=== PATIENT | male | born 1950 | race Caucasian/White ===

== ENCOUNTER 2025-05-31 07:58 | Outpatient (AMB) | payer MEDICARE, OTHER, SELFPAY ==
--- OUTSIDE RECORDS SUMMARY | 2020-11-21 10:54 | XMS_ITS | Encounter Summary ---
Author Organization [facility] Address [address] [place] [phone] Phone Care Team Providers Care Chief Of Staff Name Role Phone Manish Arellano MD Primary Care Provider + Encounter Details Date Type Department Care Team (Late st Contact Info) Description 11/21/2020 9:54 AM EST Hospital Encounter [facility] [address] [place] [address] Buffy Hightower FNP [address] [place] [address] [email or web address] Social History Tobacco Use Types Packs/Day Years Used Date Smoking Tobacco: Former Smokeless Tobacco: Never Education Answer Date Recorded Are you interested in more education? Not on ramez e 01/29/2023 Are you concerned about learning? Not on file 01/29/2023 No 01/29/2023 No 01/29/2023 Digital Access Answer Date Recorded No 03/03/2023 No 03/03/2023 Reliable internet access at home? Not on file 03/03/2023 Device with a working camera? Not on file Sex and Gender Information Value Date Recorded Sex Assigned at Male 10/25/2019 10:32 AM EST Legal Sex Male 10:18 AM EST Gender Identity Male 10/25/2019 10:32 AM EST Sexual Orientation Straight 10/25/2019 10 :32 AM EST documented as of this encounter Plan of Treatment Not on file documented as of this encounter Procedures Procedure Name Priority Date/Time Associated Diagnosis Comments XR RIBS 3 OR MORE VIEWS WITH PA CHEST (RIGHT) Urgent/patient waiting 11/21/2020 10:03 AM EST Fall, initial encounter documented in this encounter Results * XR RIBS 3 OR MORE VIEWS WITH PA CHEST (RIGHT) (11/21/2020 10:03 AM EST) Anatomical Region Laterality Modality Chest Computed Radiogr aphy 11/21/2020 10:2 9 AM EST Impressions 11/21/2020 10:38 AM EST Mildly displaced fractures of the right lateral 8th, 9th and 10th ribs. No pneumothorax. Critical results were communicated and documented using the Alert Notification of Critical Radiology Results (ANCR) system. ATTESTATION: Gina Jacobo as teaching physician, have reviewed the images for this case and if necessary edited the report originally created by Nini Simmons. Narrative 11/21/2020 10:38 AM EST TECHNIQUE: XR RIBS 3 OR MORE VIEWS WITH PA CHEST (RIGHT) COMPARISON: None. FINDINGS: Mildly displaced fractures of the right lateral 8th, 9th, and 10th ribs. The lung is clear with mild bibasilar atelectasis. Degenerative changes of the visualized spine. Procedure Note Gina Dempsey MD - 11/21/2020 TECHNIQUE: XR RIBS 3 OR MORE VIEWS WITH PA CHEST (RIGHT) COMPARISON: None. FINDINGS: Mildly displaced fractures of the right lateral 8th, 9th, [id number] ribs. The lung is clear with mild bibasilar atelectasis. Degenerativechanges of the visualized spine. IMPRESSION: Mildly displaced fractures of the right lateral 8th, 9th and 10th ribs. Nopneumothorax. Critical results were communicated and documented using the AlertNotification of Critical Radiology Results (ANCR) system. ATTESTATION: Gina Jacobo as teaching physician, have reviewed theimages for this case and if necessary edited the report originally createdby Nini Simmons. Buffy Hightower STORE HOST IMG XR CHEST Final Resul t documented in this encounter Visit Diagnoses Not on filedocumented in this encounter Additional Health Concerns Infection Onset Date Last Indicated Resolved Time CoV-Exposed Comment:Recent close contact documented in the COVID-19 PCR/PRO order 09/17/2022 09/23/2022 09/28/2022 1:[address] CoV-Risk 09/23/2022 09/23/2022 10/04/2022 1:23 AM EST documented as of this encounter Care Teams Chief Of Staff Relationship Specialty Start Date End Date Manish Arellano MD [address] [place] [phone] PCP - General Internal Medicine 11/21/20 documented as of this encounter Additional Source Comments The information contained in this document represents components of the legal health record. It is not the complete legal health record.[facility]
--- OUTSIDE RECORDS SUMMARY | 2024-10-12 13:19 | XMS_ITS | Encounter Summary ---
Author Organization [facility] Address [address] [place] [phone] Phone Care Team Providers Care Tapping Machine Operator Name Role Phone Manish Arellano MD Primary Care Provider + Encounter Details Date Type Department Care Team (Late st Contact Info) Description 10/12/2024 12:19 PM EST Hospital Encounter [facility] [address] [place] [phone] Patricia Cunningham CNP [address] [place] [address] [email or web address] Social History Tobacco Use Types Packs/Day Years [...] Name Priority Date/Time Associated Diagnosis Comments XR SHOULDER 2 VIEWS (RIGHT) Urgent/patient waiting 10/12/2024 12:28 PM EST Fall due to slipping on ice or snow, initial encounter Pain in right upper arm documented in this encounter Results * XR SHOULDER 2 VIEWS (RIGHT) (10/12/2024 12:28 PM EST) Anatomical Region Laterality Modality Shoulder Right Computed Radiogr aphy 10/12/2024 1:21 PM EST Impressions 10/12/2024 1:25 PM EST No fracture or dislocation. Narrative 10/12/2024 1:25 PM EST XR SHOULDER 2 OR MORE VIEWS (RIGHT), XR HUMERUS (RIGHT) Referring clinician's provided indication for this examination in [facility]: S/P Fall; limited arm raise, X 2 weeks COMPARISON: None FINDINGS: No fracture. Normal glenohumeral alignment and joint space. There is joint space narrowing of the acromioclavicular joint. Procedure Note Cynthia Ybarra MD - 10/12/2024 XR SHOULDER 2 OR MORE VIEWS (RIGHT), XR HUMERUS (RIGHT) Referring clinician's provided indication for this examination in [facility]:S/P Fall; limited arm raise, X 2 weeks COMPARISON: None FINDINGS: No fracture. Normal glenohumeral alignment and joint space. There is jointspace narrowing of the acromioclavicular joint. IMPRESSION: No fracture or dislocation. us Patricia Cunningham CUSHION MAT MAKER IMG XR UPPER EXTREMITY Renetta l Result documented in this encounter Visit Diagnoses Not on filedocumented in this encounter Care Teams Tapping Machine Operator Relationship Specialty Start Date End Date Manish Arellano MD [address] [place] [phone] PCP - General Internal Medicine 11/21/20 documented as of this encounter Additional Source Comments The information contained in this document represents components of the legal health record. It is not the complete legal health record.[facility]
--- OUTSIDE RECORDS SUMMARY | 2024-10-12 13:20 | XMS_ITS | Encounter Summary ---
Author Organization [facility] Address [address] [place] [address] Phone Care Team Providers Care Talent Acquisition Consultant Name Role Phone Manish Arellano MD Primary Care Provider + Encounter Details Date Type Department Care Team (Late st Contact Info) Description 10/12/2024 12:20 PM EST Hospital Encounter [facility] [address] [place] [phone] Patricia Cunningham CNP [address] [place] [address] [email or web address] Social History Tobacco Use Types Packs/Day Years [...] Name Priority Date/Time Associated Diagnosis Comments XR HUMERUS (RIGHT) Urgent/patient waiting 10/12/2024 12:27 PM EST Fall due to slipping on ice or snow, initial encounter Pain in right upper arm documented in this encounter Results * XR Humerus (Right) (10/12/2024 12:27 PM EST) Anatomical Region Laterality Modality Arm Right Computed Radiogr aphy 10/12/2024 1:21 PM EST Impressions 10/12/2024 1:25 PM EST No fracture or dislocation. Narrative 10/12/2024 1:25 PM EST XR SHOULDER 2 OR MORE VIEWS (RIGHT), XR HUMERUS (RIGHT) Referring clinician's provided indication for this examination in [facility]: S/P Fall; limited arm raise, X 2 weeks COMPARISON: None FINDINGS: No fracture. Normal glenohumeral alignment and joint space. There is joint space narrowing of the acromioclavicular joint. Procedure Note Cynthia Ybarra MD - 10/12/2024 XR SHOULDER 2 OR MORE VIEWS (RIGHT), XR HUMERUS (RIGHT) Referring clinician's provided indication for this examination in [facility]:S/P Fall; limited arm raise, X 2 weeks COMPARISON: None FINDINGS: No fracture. Normal glenohumeral alignment and joint space. There is jointspace narrowing of the acromioclavicular joint. IMPRESSION: No fracture or dislocation. us Patricia Cunningham HOME CARE RN IMG XR UPPER EXTREMITY Renetta l Result documented in this encounter Visit Diagnoses Not on filedocumented in this encounter Care Teams Talent Acquisition Consultant Relationship Specialty Start Date End Date Manish Arellano MD [address] [place] [phone] PCP - General Internal Medicine 11/21/20 documented as of this encounter Additional Source Comments The information contained in this document represents components of the legal health record. It is not the complete legal health record.[facility]
--- OUTSIDE RECORDS SUMMARY | 2025-05-31 08:01 | XMS_ITS | Clinical Summary ---
Author Organization [facility] [address] [place] [address] Address [address] [place] [address] Phone Care Team Providers Care Granulator Operator Name Role Phone Manish Arellano MD Primary Care Provider [phone] Allergies No known active allergies Medications aspirin 81 mg EC tablet Take 1 tablet (81 mg total) by mouth 1 (one) time each day. Active omega-3 acid ethyl esters (LOVAZA) 1 gram capsule 1 cap daily 11/01/2007 Active MEN'S MULTI-VITAMIN ORAL 1 tab daily 11/01/2007 Active sertraline (ZOLOFT) 50 mg tablet Take 1 tablet (50 mg total) by mouth 1 (one) time each day. 08/03/2023 Active finasteride (PROSCAR) 5 mg tablet Take 1 tablet (5 mg total) by mouth 1 (one) time each day. Do not crush, chew, or split. 90 each 1 02/01/2025 Active traZODone (DESYREL) 100 mg tablet Take 2 tablets (200 mg total) by mouth at bedtime. 180 tablet 1 02/01/2025 Active Active Problems Problem Noted Date Diagnosed Date Insomnia 08/03/2024 MCI (mild cognitive impairment) 08/03/2023 Oropharyngeal dysphagia 01/07/2021 Overview (09/16/2024): 01/07/2021: see EGD, Ba swallow, AUTOMATION APPLICATION ENGINEER evaluation. 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 Impaired fasting glucose 09/04/2017 Overview (09/16/2024): Glucose 107, 06/21/2017. Hyperlipidemia 08/31/2016 Overview (09/16/2024): Total cholesterol 206, LDL cholesterol 101, 08/29/2015. 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 Negative colonoscopy 11/01/2007 and 12/07/2012, no colon cancer screening needed for 10 years. Diverticulitis of colon without hemorrhage 11/01 Overview (09/16/2024): Incidental finding at colonoscopy. 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 Immunizations Name Administration Dates Next Due Influenza trivalent, 0.5mL ( Fluad) 65yo and older 07/10/2022,07/11/2018,06/28/2017 Influenza trivalent, 0.5mL, preservative free (Fluarix; FluLaval; Fluzone) ages 6mo and older (Afluria) 3 years and older 06/22/2020,09/01/2016,08/29/2015,07/16,08/25/2013,08/04/2012,07/14/2011 ,09/19/2008,07/13/2007 Pfizer Covid-19 Bivalent, Or iginal + Ba.1 (Non-US Trademark COMIRNATY Bivalent) 07/10/2022 Natural Convergence SARS-CoV-2 COVID-19, mRNA, LNP-S, preservative free 01/13/2022 Pneumococcal conjugate 13 va lent (Prevnar 13, PCV13) 2mo and older 09/01/2016 Pneumococcal polysaccharide 23 valent (Pneumovax 23) 2yo and older 08/28/2014 Td Tetanus diptheria (Tdvax) 7yo and older 07/09/2006 Td Tetanus diptheria, preser vative free (Tenivac) 7yo and older 02/01/2025 Tdap Tetanus diptheria acell ular pertussis (Boostrix; Adacel) 7yo and older 09/29/2013 Zoster Live 08/25/2013 Zoster recombinant (Shingrix ) 19yo and older 06/22/2020 Surgical History Surgery Date Site/Laterality Comments HERNIA REPAIR 1992 PROCEDURE: HISTORICAL HERNIA REPAIR/ING HERNIA REPAIR 1998 PROCEDURE: HISTORICAL HERNIA REPAIR/ING; COMMENT: incarcerated TONSILLECTOMY 1953 PROCEDURE: HISTORICAL TONSILLECTOMY MULTIPLE TOOTH EXTRACTIONS PROCEDURE: HISTORICAL DENTAL EXTRACTION COLONOSCOPY 12/07/2012 PROCEDURE: HISTORICAL COLONOSCOPY; COMMENT: diverticulosis; no polyps COLONOSCOPY 11/01/2007 PROCEDURE: HISTORICAL COLONOSCOPY; COMMENT: Negative. COLONOSCOPY 09/30/2004 PROCEDURE: HISTORICAL COLONOSCOPY; COMMENT: Dim tub adenoma at rectosigmoid junction. UPPER GASTROINTESTINAL ENDOSCOPY 12/25/2020 PROCEDURE: VT UPPER GI ENDOSCOPY PERFORMED; COMMENT: Small esophageal ulcer; minimal erosive gastropathy; pathology: Minimal inflammation otherwise negative. Medical History Medical History Date Comments Unspecified hearing loss 07/09/2006 DX:Unsp ecified hearing loss Unspecified hearing loss 07/09/2006 DX:Unsp ecified hearing loss Benign neoplasm of rectum an d anal canal 11/01/2007 DX:Benign neoplasm of rectum and anal canal; COMMENT: CN 09/30/2004. Negative colonoscopy 11/01/2007, no colon cancer screening needed for 5 years. Diverticulosis of colon (wit hout mention of hemorrhage) 11/01/2007 DX:Diverticulosis of colon ( without mention of hemorrhage); COMMENT: Incidental finding at colonoscopy. Oropharyngeal dysphagia 01/07/2021 DX:Oroph aryngeal dysphagia; COMMENT: 01/07/2021: see EGD, Ba swallow, AUTOMATION APPLICATION ENGINEER evaluation. Family History Medical History Relation Name Comments Brain cancer Aunt Lung cancer Father age 65 Other: Old age Mother age 88 Colon cancer Neg Hx Esophageal cancer Neg Hx Stomach cancer Neg Hx Relation Name Status Comments Aunt Father Mother Social History Tobacco Use Types Packs/Day Years Used Date Smoking Tobacco: Former Cigarettes Q uit: 10/05/1979 Smokeless Tobacco: Never Tobacco Cessation:Counseling Given: Not Answered Alcohol Use Standard Drinks/Week Comments No 0 (1 standard drink = 0.6 oz pur e alcohol) Sex and Gender Information Value Date Recorded Sex Assigned at Not on file Legal Sex Male 4:51 PM EST Gender Identity Not on file Sexual Orientation Not on file Obstetrics History Last Filed Vital Signs Vital Sign Reading Time Taken Comments Blood Pressure 122/62 02/01/2025 8:00 AM EDT Pulse 72 02/01/2025 8:00 AM EDT Temperature 36.2 C (97.1 F) 02/01/2025 8:00 AM EDT Respiratory Rate - - Oxygen Saturation 98% 02/01/2025 8:00 AM EDT Inhaled Oxygen Concentration - - Weight 86.3 kg (190 lb 4.8 oz) 02/01/2025 8:00 A M EDT Height 177.8 cm (5' 10 ) 02/01/2025 8:00 AM EDT Body Mass Index 27.31 02/01/2025 8:00 AM EDT Plan of Treatment Upcoming Encounters Date Type Department Care Team (Late st Contact Info) Description 08/17/2025 8:30 AM EST Office Visit Adult Medicine [address] [phone] Manish Arellano MD [address] [place] [phone] Health Maintenance Due Date Last Done Comments Social Influencers of Health Screening 09/13/2022 Depression Screening 10/05/2024 02/01/2024 COVID-19 Vaccine ( season) 2025 07/19/2024, 07/06/2023, 01/28/2023, Additional history exists Medicare Annual Wellness Visit 01/31/2025 02/01/2024 Influenza Vaccine (#1) 2025 , 05/29/2023, 07/10/2022, Additional history exists Falls Risk Assessment 08/03/2025 08/03/2024 Cholesterol Screening (Lipid Panel) 02/01/2030 02/01/2025, 01/27/2022 DTaP,Tdap,and Td Vaccines (4 - Td or Tdap) 02/01/2035 02/01/2025, 09/29/2013, 07/09/2006 Hepatitis C Screening Completed 08/25/2013 Pneumococcal Vaccine: 50+ Years Completed 05/29/2023, 09/01/2016, 08/28/2014 Zoster Vaccines Completed 05/29/2023, 01/04, 06/22/2020, Additional history exists Colorectal Cancer Screening: Colonoscopy Discontinued 06/24/2024 RSV Immunization Adult Patients Completed 07/19/2024 HIB Vaccines Aged Out No longer eligi ble based on patient's age to complete this topic HPV Vaccines Aged Out No longer eligi ble based on patient's age to complete this topic Hepatitis A Vaccines Aged Out No long er eligible based on patient's age to complete this topic Hepatitis B Vaccines Aged Out No long er eligible based on patient's age to complete this topic IPV Vaccines Aged Out No longer eligi ble based on patient's age to complete this topic MMR Vaccines Aged Out No longer eligi ble based on patient's age to complete this topic Meningococcal ACWY Vaccine Aged Out N o longer eligible based on patient's age to complete this topic Meningococcal B Vaccine Aged Out No l onger eligible based on patient's age to complete this topic RSV Immunization Patients Under 20 months Aged Out No longer eligible based on patient's age to complete this topic Varicella Vaccines Aged Out No longer eligible based on patient's age to complete this topic Procedures Procedure Name Priority Date/Time Associated Diagnosis Comments LIPID PANEL WITH REFLEX TO DIRECT LDL Routine 02/01/2025 8:45 AM EDT Hyperlipidemia, unspecified hyperlipidemia type FALLS RISK ASSESSMENT Routine 08/03/2024 COLONOSCOPY Routine 06/24/2024 DEPRESSION SCREENING Routine 02/01/2024 HEPATITIS C SCREENING Routine 08/25/2013 from Last 3 Months or Most Recently Relevant to Health Maintenance Results * Lipid panel with reflex to direct LDL (02/01/2025 8:45 AM EDT) [facility] Signature Cholesterol 169 0 - 200 mg/dL LAB CHEMISTRY METHOD 02/01/2025 6:10 PM EDT [facility] Triglycerides 51 0 - 150 mg/dL LAB CHEMISTRY METHOD 02/01/2025 6:10 PM EDT [facility] HDL 68 >=40 mg/dL LAB CHEMISTRY METHOD 02/01/2025 6:10 PM EDT [facility] LDL Calculated 91 0 - 100 mg/dL LAB CHEMISTRY METHOD 02/01/2025 6:10 PM EDT [facility] VLDL Cholesterol Asif 10.2 mg/dL LAB CHEMISTRY METHOD 02/01/2025 6:10 PM EDT [facility] Non HDL Chol. (LDL+VLDL) 101 <145 mg/dL LAB CHEMISTRY METHOD 02/01/2025 6:10 PM EDT [facility] Chol/HDL Ratio 2.5 0.0 - 4.4 LAB CHEMISTRY METHOD 02/01/2025 6:10 PM EDT [facility] Blood Venous blood specimen / Unknown Venipuncture / Unknown 02/01/2025 8:45 AM EDT 02/01/2025 8:45 AM EDT Ludivina REYNOSO LAB BLOOD ORDERABLES Fi nal Result [facility] [address] [place] [address], * Falls Risk Assessment (08/03/2024) [facility] Falls Risk Assessment abstracted Historical Provider HEALTH MAINTENANCE Final Result * Colonoscopy (06/24/2024) [facility] Colonoscopy no interpretation , abstracted Anatomical Region Laterality Modality Other Historical Provider HEALTH MAINTENANCE Final Result * Depression Screening (02/01/2024) [facility] Depression Screening abstracted us Historical Provider HEALTH MAINTENANCE Final Result * Hepatitis C Screening (08/25/2013) Hepatitis C Screening abstracted Historical Provider HEALTH MAINTENANCE Final Result from Last 3 Months or Most Recently Relevant to Health Maintenance Insurance [facility] MEDIC[facility] Care Teams Granulator Operator Relationship Specialty Start Date End Date Manish Arellano MD [address] [place] [phone] PCP - General Internal Medicine 04/10/20
--- OUTSIDE RECORDS SUMMARY | 2025-05-31 08:01 | XMS_ITS | Clinical Summary ---
Author Organization [facility] Address [address] [facility] [address] [place] [phone] Phone Care Team Providers Care Works Manager Name Role Phone Manish Arellano MD Primary Care Provider + Allergies No known active allergies Medications sertraline (ZOLOFT) 50 MG tablet Take 50 mg by mouth daily. 1 Active traZODone (DESYREL) 50 MG tablet Take by mouth nightly at bedtime. 2 Active finasteride (PROSCAR) 5 mg tablet Take 1 Tablet by mouth daily for 180 days. 4 Active aspirin 81 MG EC tablet Take 81 mg by mouth. Active therapeutic multivitamin tablet Take 1 tablet by mouth daily. Active donepeziL (ARICEPT) 5 MG tablet Take 5 mg by mouth daily. with food 5 Active Active Problems Problem Noted Date Diagnosed Date MCI (mild cognitive impairment) 08/03/2023 Impaired fasting glucose 09/04/2017 Overview (10/12/2024): Glucose 107, 06/21/2017. Hyperlipidemia 08/31/2016 Overview (10/12/2024): Total cholesterol 206, LDL cholesterol 101, 08/29/2015. 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 Negative colonoscopy 11/01/2007 and 12/07/2012, no colon cancer screening needed for 10 years. 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 Encounters Date Type Department Care Team Description 05/03/2025 10:40 AM EDT Office Visit [facility] [address] [place] [address] Livan Chow PA-C Tendinitis of right rotator cuff (Primary Dx) from Last 3 Months Immunizations No known immunizations Social History Tobacco Use Types Packs/Day Years Used Date Smoking Tobacco: Former Smokeless Tobacco: Never Tobacco Cessation:Counseling Given: Not Answered Education Answer Date Recorded Are you interested [...] Orientation Straight 10/25/2019 10 :32 AM EST Last Filed Vital Signs Vital Sign Reading Time Taken Comments Blood Pressure 132/81 10/12/2024 12:00 PM EST Pulse 81 10/12/2024 12:00 PM EST Temperature 36.7 C (98.1 F) 10/12/2024 12:00 PM EST Respiratory Rate 16 10/12/2024 12:00 PM EST Oxygen Saturation 96% 10/12/2024 12:00 PM EST Inhaled Oxygen Concentration - - Weight 93 kg (205 lb) 11/21/2020 9:46 AM EST Height 177.8 cm (5' 10 ) 11/21/2020 9:46 AM EST Body Mass Index 29.41 11/21/2020 9:46 AM EST Plan of Treatment Health Maintenance Due Date Last Done Comments DEPRESSION SCREENING 1960 SMOKING Hx and SMOKELESS TOBACCO SCREENING 1961 HEPATITIS C SCREENING 1966 COVID-19 VACCINE ( season) 2025 07/19/2024, 07/06/2023, 01/28/2023, Additional history exists LIPID PANEL 02/01/2030 02/01/2025, 01/27/2022 Adult Td,Tdap Booster 02/01/2035 02/01/2025 , 09/29/2013, 07/09/2006 PNEUMOCOCCAL VACCINES (50+ years) Completed 05/29/2023, 09/01/2016, 08/28/2014 ZOSTER VACCINES Completed 05/29/2023, 01/04, 06/22/2020, Additional history exists RSV VACCINE Completed 07/19/2024 HEPATITIS A VACCINES Aged Out No long er eligible based on patient's age to complete this topic HIB VACCINES Aged Out No longer eligi ble based on patient's age to complete this topic MENINGOCOCCAL VACCINES (ACWY) Aged Out No longer eligible based on patient's age to complete this topic MENINGOCOCCAL VACCINES (B) Aged Out N o longer eligible based on patient's age to complete this topic Medical Devices Not on file Insurance MEDICARE PART A & B [facility] MEDICARE SUPPLEMENT MEDICARE PART A & B [employer] [facility] EXTENSION MEDICARE SUPPLEMENT MEDICARE PART A & B [facility] MEDICARE SUPPLEMENT MEDICARE PART A & B [facility] MEDICARE SUPPLEMENT MEDICARE PART A & B [facility] MEDICARE SUPPLEMENT MEDICARE PART A & B Member Subscriber Plan / Payer (Ef fective 2013-Present) Name:[employer] Member ID:[id number] Relation to Subscriber:Self Name:[employer] Subscriber ID:[id number] Payer ID:[id number] Group ID:Not on file Type:Medicare Address: [employer] [address] [place] [id number] [facility] MEDICARE SUPPLEMENT MEDICARE PART A & B [employer] MEDICARE SUPPLEMENT MEDICARE PART A & B [employer] MEDICARE SUPPLEMENT MEDICARE PART A & B [facility] MEDICARE SUPPLEMENT Care Teams Works Manager Relationship Specialty Start Date End Date Manish Arellano MD [address] [place] [id number] PCP - General Internal Medicine 11/21/20 Additional Source Comments The information contained in this document represents components of the legal health record. It is not the complete legal health record.[facility]
--- OUTSIDE RECORDS SUMMARY | 2025-05-31 08:01 | XMS_ITS | Encounter Summary ---
Author Organization [facility] Address [address] [place] [address] Care Team Providers Care Cut And Print Machine Operator Name Role Phone Manish Arellano MD Primary Care Provider [phone] Encounter Details Date Type Department Care Team (Late st Contact Info) Description 10/07/[address] [facility] Lab [address] [facility] [place] [phone] Maria C Rose PA [address] [id number] Benign prostatic hyperplasia with lower urinary tract symptoms Social History Tobacco Use Types Packs/Day Years Used Date Smoking Tobacco: Former Cigarettes Q uit: 10/05/1979 Smokeless Tobacco: Never Alcohol Use Standard Drinks/Week Comments No 0 (1 standard drink = 0.6 oz pur e alcohol) Sex and Gender Information Value Date Recorded Sex Assigned at Not on file Legal Sex Male 4:51 PM EST Gender Identity Not on file Sexual Orientation Not on file documented as of this encounter Plan of Treatment Upcoming Encounters Date Type Department Care Team (Late st Contact Info) Description 08/17/2025 8:30 AM EST Office Visit Adult Medicine [address] [phone] Mnaish Arellano MD [address] [place] [address] documented as of this encounter Procedures Procedure Name Priority Date/Time Associated Diagnosis Comments PROSTATE SPECIFIC ANTIGEN DIAGNOSTIC Routine 10/07/2024 9:06 AM EST Benign prostatic hyperplasia with lower urinary tract symptoms documented in this encounter Results * Prostate specific antigen diagnostic (10/07/2024 9:06 AM EST) PSA 2.51 0.00 - 4.00 ng/mL LAB CHEMISTRY METHOD 10/07/2024 10:52 AM EST [facility] Blood Venous blood specimen / Unknown 10/07/2024 9:06 AM EST 10/07/2024 10:26 AM EST Narrative [facility] - 10/07/2024 10:52 AM EST The Siemens Advia Custoraaur Chemiluminescent Immunoassay is used. Results obtained with different assay methods or kits cannot be used interchangeably. Results cannot be interpreted as absolute evidence of the presence or absence of malignant disease. us Maria C REYNOSO LAB BLOOD ORDERABLES Final Res ult [facility] [address] [place] [address], documented in this encounter Visit Diagnoses Diagnosis Benign prostatic hyperplasia with lower urinary tract symptoms documented in this encounter Care Teams Cut And Print Machine Operator Relationship Specialty Start Date End Date Manish Arellano MD [address] [place] [id number] PCP - General Internal Medicine 04/10/20 documented as of this encounter
--- OUTSIDE RECORDS SUMMARY | 2025-05-31 08:01 | XMS_ITS ---
Author Name [facility] Organization [facility] Encounters Encounter Type Encounter Reason Primary Diagnosis Location Date Emergency Unspecified diso rder of eye and adnexa [facility] 05/18/2022 Care Team Organization Name Specialty Phone Email Start Date End Da te [facility] ACO 05/24/2025 [facility] YUSEF DONELL Primary Care 08/12/2022 [facility] 05/18/202205/05 [facility] 05/18/2022
--- OUTSIDE RECORDS SUMMARY | 2025-05-31 08:01 | XMS_ITS | Clinical Summary ---
Author Organization [employer] [facility] Address [address] [place] [address] Care Team Providers Care Academy Education Director Name Role Phone Manish Arellano MD Primary Care Provider [phone] Allergies No known active allergies Social History Tobacco Use Types Packs/Day Years Used Date Smoking Tobacco: Never Assessed Sex and Gender Information Value Date Recorded Sex Assigned at Not on file Legal Sex Male 5:37 PM EDT Gender Identity Not on file Sexual Orientation Not on file Last Filed Vital Signs Vital Sign Reading Time Taken Comments Blood Pressure 148/78 05/18/2022 6:55 PM EDT Pulse 72 05/18/2022 6:55 PM EDT Temperature 35.9 C (96.6 F) 05/18/2022 5:45 PM EDT Respiratory Rate 14 05/18/2022 6:55 PM EDT Oxygen Saturation 98% 05/18/2022 6:55 PM EDT Inhaled Oxygen Concentration - - Weight 90 kg (198 lb 6.6 oz) 05/18/2022 5:45 PM EDT Height 177.8 cm (5' 10 ) 05/18/2022 5:45 PM EDT Body Mass Index 28.47 05/18/2022 5:45 PM EDT Plan of Treatment Health Maintenance Due Date Last Done Comments Hepatitis C Screening 1950 Lipid Panel 1950 Medicare Annual Wellness Visit 1966 Tdap and Td Vaccines Adult 12/24/1967 Pneumococcal Vaccine: 50+ Ye ars (1 of 1 - PCV) 1998 Zoster Vaccines (1 of 2) 1998 Fall Risk Screening 2013 RSV 60+ (1 - 1-dose 75+ series) 12/24/2023 COVID-19 Vaccine (1 - 2023-2 5 season) 2024 Influenza Vaccine (#1) 2025 HIB Vaccines Aged Out No longer eligi ble based on patient's age to complete this topic HPV Vaccines (No Doses Required) Completed Hepatitis A Vaccines Aged Out No long er eligible based on patient's age to complete this topic IPV Vaccines Aged Out No longer eligi ble based on patient's age to complete this topic Meningococcal Vaccine Aged Out No manas chi eligible based on patient's age to complete this topic RSV <20 Months Aged Out No longer porfirio gible based on patient's age to complete this topic Insurance [facility] [place] [id number] [employer] GENERIC MEDICARE Care Teams Academy Education Director Relationship Specialty Start Date End Date Manish Arellano MD PCP - General Internal Medicine 05/18/22
--- NOTE | 2025-05-31 08:12 | MHC.OFFVIS ---
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 I initially saw him in 2019. With symptoms of dementia and mild cognitive dysfunction on examination, his brain MRI revealed [id number] cerebral atrophy and mild microvascular ischemic changes. He also used to drink alcohol. He is presenting with insomnia. He experiences frequent awakenings and struggles with returning to sleep, resulting in an estimated five hours of sleep per night. He occasionally relaxes during the day but does not achieve restorative sleep. The patient has an enlarged prostate contributing to nocturnal awakenings and frequent urination, though not currently treated pharmacologically. The donepezil prescription quantity has been resolved to be 5 mg once daily, with potential increased dosage in the future. The patient takes sertraline for depression, which he continues effectively. PFSH Medical History Obesity Mild dementia Depression H/O alcohol abuse Multifactorial dementia Alzheimer disease Cerebral microvascular disease Peripheral neuropathy Alcohol abuse Review of Systems Const Details: - Sleep: Reports difficulty maintaining sleep, frequent awakenings, and non-restorative naps during the day. - Genitourinary: Reports frequent nocturnal urination. - Neurological: Reports no current sleep-related bad dreams; current donepezil use for Alzheimer's Disease. - Psychiatric: Reports mood as okay while on sertraline. Physical Exam Neuro Other: Mental Status: Alert and oriented to person, place, and time. Normal attention. Normal spontaneous speech, fluency, and comprehension. Cranial Nerves: CN II: Visual vickers full to confrontation, visual acuity intact. CN III, IV, : Pupils equal, round, reactive to light and accommodation. Extraocular movements are normal. CN V: Facial sensation is normal. CN VII: Facial movements symmetrical. CN VIII: Hearing intact to bedside conversation is normal. CN IX, X: Palate elevates symmetrically. CN XI: Shoulder shrug and head turn symmetrical. CN XII: Tongue midline without atrophy or fasciculations. Motor: Bulk and tone normal in all extremities. No significant muscle weakness in arms and legs. No drift. Extrapyramidal: Full facial expressions and blinking. No rigidity. Movements are appropriate with no tremor or abnormality. Speech: Normal; no dysarthria or tremor. Assessment & Plan Assessment & Plan (1) Multifactorial dementia: Code(s): F03.90 - Unspecified dementia, unspecified severity, without behavioral disturbance, psychotic disturbance, mood disturbance, and anxiety Category: Medical (2) Alzheimer dementia: Code(s): G30.9 - Alzheimer's disease, unspecified; F02.80 - Dementia in other diseases classified elsewhere, unspecified severity, without behavioral disturbance, psychotic disturbance, mood disturbance, and anxiety Category: Medical Qualifiers: Alzheimer's disease onset: late onset Dementia severity: mild Dementia behavioral or psychological symptom: with anxiety Qualified Code(s): G30.1 - Alzheimer's disease with late onset; F02.A4 - Dementia in other diseases classified elsewhere, mild, with anxiety (3) Insomnia: Comment: The potential benefit of evening exercise and morning light exposure to enhance sleep in this patient was reviewed. These strategies target natural circadian rhythm entrainment. Donepezil's timing of administration was clarified, ensuring effective Alzheimer's management while watching for adverse effects. The pros and cons of medication adjustments for BPH, given his nocturnal symptoms, were outlined, considering no pharmacological intervention currently. Continuation of sertraline was discussed without concerns noted. Pharmacy details were corrected for appropriate dispensing of medications. Code(s): G47.00 - Insomnia, unspecified Category: Medical Qualifiers: Insomnia type: due to medical condition Qualified Code(s): G47.01 - Insomnia due to medical condition Plan Impression: a: Multifactorial dementia b: Mild dementia wtih anxiety Rec: a: Stay socially and physically active b: Donepezil 10mg a day c: Sertaline 50mg a day Medications: New donepezil 10 mg PO BEDTIME 90 tabs 1RF 90 days Refilled sertraline 50 mg PO DAILY 90 tabs 1RF Discontinued donepezil Discontinued Reason: Doctor's Order 5 mg PO BEDTIME 90 days 90 tabs 1RF Coding Level of Care Code Est Pt Level 5 (70222) Diagnoses Multifactorial dementia F03.90 Mild late onset Alzheimer's dementia with anxiety G30.1; F02.A4 Alzheimer's disease onset: late onset Dementia severity: mild Dementia behavioral or psychological symptom: with anxiety Insomnia due to medical condition G47.01 Insomnia type: due to medical condition
== END 2025-05-31 08:23 | disposition home or self-care (01) ==
LOC: HO.HSM 07:59
PROVIDERS: PCP Internal Medicine; Referring Provider Internal Medicine; Visit Provider Psychiatry & Neurology Neurology
DX: G30.1 Alzheimer's disease with late onset (principal); F03.90 Unspecified dementia, unspecified severity, without behavioral disturbance, psychotic disturbance, mood disturbance, and anxiety; F02.A4 Dementia in other diseases classified elsewhere, mild, with anxiety; G47.01 Insomnia due to medical condition
CPT/HCPCS: 99215

== ENCOUNTER → 2025-05-31 07:58 | Outpatient (BNVA) | payer MEDICARE, OTHER, SELFPAY | PROVIDERS: PCP Internal Medicine; Referring Provider Internal Medicine; Visit Provider Psychiatry & Neurology Neurology | DX: G30.1 Alzheimer's disease with late onset (principal); F02.A4 Dementia in other diseases classified elsewhere, mild, with anxiety; G47.01 Insomnia due to medical condition | CPT/HCPCS: 99212 ==